=== PATIENT | female | born 1980 | race Caucasian/White ===

== ENCOUNTER 2017-06-06 23:03 | Inpatient (IN) | payer OTHER ==
[~2017-06-06] VITALS: Ht 162.6 cm; Wt 71.4 kg
[2017-06-06 23:12] VITALS: BP 132/81; PULSE 82; RESP 16; TEMP 97.6; O2SAT 100
[2017-06-06 23:56] LABS: AUTOMATED NEUTROPHIL # 6.8 TH/MM3 (1.8-7.7); BASOPHIL # 0.1 TH/MM3 (0-0.2); BASOPHIL % 0.7 % (0.0-2.0); EOSINOPHIL % 0.2 % (0.0-4.0); HEMATOCRIT 34.9 % (35.0-46.0); HEMOGLOBIN 11.2 GM/DL (11.6-15.3); LYMPH % 19.7 % (9.0-44.0); LYMPHOCYTE # 1.8 TH/MM3 (1.0-4.8); MEAN CELL VOLUME 70.1 FL (80.0-100.0); MEAN CORPUSCULAR HEMOGLOBIN 22.5 PG (27.0-34.0); MEAN CORPUSCULAR HGB CONC 32.2 % (32.0-36.0); MONO % 3.6 % (0.0-8.0); MONOCYTE # 0.3 TH/MM3 (0-0.9); NEUT % 75.8 % (16.0-70.0); PLATELET COUNT 370 TH/MM3 (150-450); RED BLOOD COUNT 4.98 MIL/MM3 (4.00-5.30); RED CELL DISTRIBUTION WIDTH 18.2 % (11.6-17.2); WHITE BLOOD COUNT 8.9 TH/MM3 (4.0-11.0)
[2017-06-07 00:18] LABS: ALBUMIN 3.8 GM/DL (3.4-5.0); ALT (GPT) 12 U/L (10-53); AST (GOT) 20 U/L (15-37); BICARBONATE 27.7 MEQ/L (21.0-32.0); BLOOD UREA NITROGEN 13 MG/DL (7-18); CALCIUM 9.2 MG/DL (8.5-10.1); CHLORIDE 107 MEQ/L (98-107); CREATININE 1.42 MG/DL (0.50-1.00); GLOMERULAR FILTRATION RATE 42 ML/MIN (>89); GLUCOSE,RANDOM 110 MG/DL (74-106); SODIUM (NA) 142 MEQ/L (136-145)
[2017-06-07 00:20] LABS: ALKALINE PHOSPHATASE 133 U/L (45-117); TOTAL BILIRUBIN ADULT 0.3 MG/DL (0.2-1.0); TOTAL PROTEIN 8.3 GM/DL (6.4-8.2)
--- NOTE | 2017-06-07 00:48 | PD ---
HPI Chief Complaint: Psychiatric Symptoms Time Seen by Provider: 00:27 Travel History International Travel<30 days: No Contact w/Intl Traveler<30days: No Traveled to known affect area: No History of Present Illness HPI 37-year-old white female presents emergency department under a [place] act by PD. Patient allegedly had left a suicide note and had taken 3 sleep aids for being brought in. The patient states that she is not sure exactly what was in the sleep aid. They were equate brand. Patient denies any other ingestions. She does drink alcohol on occasion. She denies any drugs. She does smoke cigarettes on occasion. Denies . She does report suffering from depression. She is not taking any antidepressants at this time. She is in the process of getting from her . She states that he is probably amorous and he has had his girlfriend living with them since the fall. She states that she is tired of her having another lover. Patient denies true suicidal ideation. No homicidal ideation. No medical complaints PFSH Past Medical History Narrative Medical Depression Tetanus Vaccination: < 5 Years ?: Not LMP: 05/30/2017 Past Surgical History Surgical History: No Previous Surgery Social History Alcohol Use: Yes Tobacco Use: Yes Substance Use: No Allergies-Medications (Allergen,Severity, Reaction): Coded Allergies: bupropion (Verified Allergy, Unknown, HIVES, 06/06/17) Review of Systems General / Constitutional: No: Fever Eyes: No: Visual changes HENT: No: Headaches Cardiovascular: No: Chest Pain or Discomfort Respiratory: No: Shortness of Breath Gastrointestinal: No: Abdominal Pain Genitourinary: No: Dysuria Musculoskeletal: No: Pain Skin: No Rash Neurologic: No: Weakness Psychiatric: Positive: Depression, Suicidal Ideations, Mood Disorder, No: Anxiety, Disorder of Thought, Substance Abuse, Homicidal Ideation Endocrine: No: Polydipsia Hematologic/Lymphatic: No: Easy Bruising Physical Exam Narrative GENERAL: Well-nourished, well-developed patient. She does not appear to be somnolent. SKIN: Warm and dry. Patient has 2 Hickey's on her neck. HEAD: Normocephalic and atraumatic. EYES: No scleral icterus. No injection or drainage. ENT: No nasal drainage noted. Mucous membranes pink. Airway patent. NECK: Supple, trachea midline. Moves head freely without obvious discomfort. CARDIOVASCULAR: Regular rate and rhythm without murmurs, gallops, or rubs. RESPIRATORY: Breath sounds equal bilaterally. No accessory muscle use. GASTROINTESTINAL: Abdomen soft, non-tender, nondistended. EXTREMITIES: No cyanosis or edema. BACK: Nontender without obvious deformity. No CVA tenderness. NEURO: Patient is alert and oriented. no sensorimotor deficits. Nonfocal. Normal speech. PSYCH: No delusions. No auditory or visual hallucinations. Data Data Last Documented VS Vital Signs Date Time Temp Pulse Resp B/P (MAP) Pulse Ox O2 Delivery O2 Flow Rate FiO2 06/07/17 02:26 104 20 116/72 (87) 99 Room Air 06/06/17 23:12 97.6 Orders Orders Complete Blood Count With Diff (06/06/17 23:35) Comprehensive Metabolic Panel (06/06/17 23:35) Ed Urine Pregnancytest Poc (06/06/17 23:35) Psych Screen (06/06/17 23:35) Drug Screen, Random Urine (06/06/17 23:35) Alcohol (Ethanol) (06/07/17 00:28) Salicylates (Aspirin) (06/07/17 00:29) Tylenol (Acetaminophen) (06/07/17 00:29) Labs Laboratory Tests Test 06/06/17 00:00 06/06/17 23:35 06/06/17 23:40 Salicylates Level LESS THAN 1.7 MG/DL Acetaminophen Level LESS THAN 2.0 MCG/ML Ethyl Alcohol Level LESS THAN 3 MG/DL White Blood Count 8.9 TH/MM3 Red Blood Count 4.98 MIL/MM3 Hemoglobin 11.2 GM/DL Hematocrit 34.9 % Mean Corpuscular Volume 70.1 FL Mean Corpuscular Hemoglobin 22.5 PG Mean Corpuscular Hemoglobin Concent 32.2 % Red Cell Distribution Width 18.2 % Platelet Count 370 TH/MM3 Mean Platelet Volume 8.0 FL Neutrophils (%) (Auto) 75.8 % Lymphocytes (%) (Auto) 19.7 % Monocytes (%) (Auto) 3.6 % Eosinophils (%) (Auto) 0.2 % Basophils (%) (Auto) 0.7 % Neutrophils # (Auto) 6.8 TH/MM3 Lymphocytes # (Auto) 1.8 TH/MM3 Monocytes # (Auto) 0.3 TH/MM3 Eosinophils # (Auto) 0.0 TH/MM3 Basophils # (Auto) 0.1 TH/MM3 CBC Comment DIFF FINAL Differential Comment Blood Urea Nitrogen 13 MG/DL Creatinine 1.42 MG/DL Random Glucose 110 MG/DL Total Protein 8.3 GM/DL Albumin 3.8 GM/DL Calcium Level 9.2 MG/DL Alkaline Phosphatase 133 U/L Aspartate Amino Transf (AST/SGOT) 20 U/L Alanine Aminotransferase (ALT/SGPT) 12 U/L Total Bilirubin 0.3 MG/DL Sodium Level 142 MEQ/L Potassium Level 3.9 MEQ/L Chloride Level 107 MEQ/L Carbon Dioxide Level 27.7 MEQ/L Anion Gap 7 MEQ/L Estimat Glomerular Filtration Rate 42 ML/MIN Urine Opiates Screen NEG Urine Barbiturates Screen NEG Urine Amphetamines Screen NEG Urine Benzodiazepines Screen NEG Urine Cocaine Screen NEG Urine Cannabinoids Screen NEG MDM Medical Decision Making Medical Screen Exam Complete: Yes Emergency Medical Condition: Yes Medical Record Reviewed: Yes Interpretation(s) Laboratory Tests Test 06/06/17 00:00 06/06/17 23:35 06/06/17 23:40 Salicylates Level LESS THAN 1.7 MG/DL Acetaminophen Level LESS THAN 2.0 MCG/ML Ethyl Alcohol Level LESS THAN 3 MG/DL White Blood Count 8.9 TH/MM3 Red Blood Count 4.98 MIL/MM3 Hemoglobin 11.2 GM/DL Hematocrit 34.9 % Mean Corpuscular Volume 70.1 FL Mean Corpuscular Hemoglobin 22.5 PG Mean Corpuscular Hemoglobin Concent 32.2 % Red Cell Distribution Width 18.2 % Platelet Count 370 TH/MM3 Mean Platelet Volume 8.0 FL Neutrophils (%) (Auto) 75.8 % Lymphocytes (%) (Auto) 19.7 % Monocytes (%) (Auto) 3.6 % Eosinophils (%) (Auto) 0.2 % Basophils (%) (Auto) 0.7 % Neutrophils # (Auto) 6.8 TH/MM3 Lymphocytes # (Auto) 1.8 TH/MM3 Monocytes # (Auto) 0.3 TH/MM3 Eosinophils # (Auto) 0.0 TH/MM3 Basophils # (Auto) 0.1 TH/MM3 CBC Comment DIFF FINAL Differential Comment Blood Urea Nitrogen 13 MG/DL Creatinine 1.42 MG/DL Random Glucose 110 MG/DL Total Protein 8.3 GM/DL Albumin 3.8 GM/DL Calcium Level 9.2 MG/DL Alkaline Phosphatase 133 U/L Aspartate Amino Transf (AST/SGOT) 20 U/L Alanine Aminotransferase (ALT/SGPT) 12 U/L Total Bilirubin 0.3 MG/DL Sodium Level 142 MEQ/L Potassium Level 3.9 MEQ/L Chloride Level 107 MEQ/L Carbon Dioxide Level 27.7 MEQ/L Anion Gap 7 MEQ/L Estimat Glomerular Filtration Rate 42 ML/MIN Urine Opiates Screen NEG Urine Barbiturates Screen NEG Urine Amphetamines Screen NEG Urine Benzodiazepines Screen NEG Urine Cocaine Screen NEG Urine Cannabinoids Screen NEG Differential Diagnosis MDM: High Differential diagnoses: Schizophrenia, schizoaffective disorder, bipolar, anxiety, depression, adjustment reaction, mood disorder NOS, ODD, depressive disorder NOS, infection,electrolyte abnormality, malingering. Narrative Course Mental health screening discussed with the patient. Psychiatric screen ordered. The patient has been medically cleared. This is nontoxic overdose, medical clearance for psychiatric admission Diagnosis Primary Impression: Nontoxic overdose Additional Impression: Medical clearance for psychiatric admission Condition: Stable Taras Zaidi Jun 07, 2017 00:47
[2017-06-07 02:26] VITALS: BP 116/72; PULSE 104; RESP 20; O2SAT 99
[2017-06-07 06:09] VITALS: BP 124/82; PULSE 92; RESP 20; O2SAT 99
[2017-06-07] MEDS ORDERED: LORazepam 0.5 MG TAB PO PRN (09:00)
[2017-06-07] MEDS ORDERED: LORazepam 2 MG/ML VIAL IM PRN ×2 (09:00)
[2017-06-07] MEDS ORDERED: ALUMINUM/MAGNESIUM/SIMETH 30 ML CUP PO PRN (09:00)
[2017-06-07] MEDS ORDERED: MAGNESIUM HYDROXIDE SUSP 30 ML CUP PO PRN (09:00)
[2017-06-07] MEDS ORDERED: LORazepam 1 MG TAB PO PRN (09:00)
[2017-06-07] MEDS ORDERED: ACETAMINOPHEN 325 MG TAB PO PRN (09:00)
[2017-06-07] MEDS: NICOTINE 21 MG/24 HR PATCH T-DERMAL SCH (09:00)
--- NOTE | 2017-06-07 12:14 | HHI.HP ---
Provisional Diagnosis Admission Date Jun 07, 2017 at 08:59 Conrad I. Adjustment disorder with depressed mood vs major depressive disorder, recurrent , severe, without psychosis, anxiety Conrad II. Unspecified personality disorder Conrad III. No significant medical history Certification of Person's Competence To Provide Express and Informed Consent I have personally examined Chel Crystal , a person being served at [facility] on, Jun 07, 2017 11:59. Express and informed consent means consent voluntarily given in writing, by a competent person, after sufficient explanation and disclosure of the subject matter involved to enable the person to make a knowing and willful decision without any element of force, fraud, deceit, duress, or other form of constraint or coercion. This person is 18 years of age or older, is not now known to be incompetent to consent to treatment with a guardian advocate, and does not have a health care surrogate or proxy currently making medical treatment decisions. I have found this person to be one of the following: [] Competent to provide express and informed consent, as defined above, for voluntary admission to this facility and is competent to provide express and informed consent for treatment. He/she has the consistent capacity to make well reasoned, willful, and knowing decisions concerning his or her medical or mental health treatment. The person fully and consistently understands the purpose of the admission for examination/placement and is fully capable of personally exercising all rights assured [place] [] Incompetent to provide express and informed consent to voluntary admission, and this is incompetent to provide express and informed consent to treatment. The person must be transferred to involuntary status and a petition for a guardian advocate filed with the Circuit Court. [x] Refusing to provide express and informed consent to voluntary admission but is competent to provide express and informed consent for treatment. The person must be discharged or transferred to involuntary status. Form shall be completed within 24 hours of a person's arrival at the receiving facility and filed in the clinical record of each person: 1. Admitted on a voluntary basis 2. Permitted to provide express and informed consent to his/her own treatment 3. Allowed to transfer from involuntary to voluntary status 4. Prior to permitting a person to consent to his or her own treatment after having been previously found incompetent to consent to treatment. 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 Patient allegedly had left a suicide note and had taken 3 sleep aids for being brought in to [facility]. The patient states that she is not sure exactly what was in the sleep aid "but I just wanted to , I was very depressed". The patient reports that she has been in a very frustrating situation for the last year. She states that her marriage is hail and she is just tired. Patient explains that she has been engaged in "very wear relationship with my and his girlfriend who is 19 years old". The patient reports that the recent she tried to commit suicide is because she has became aware "but he clearly prefers her". Patient reports than when she overdosed and wrote the letter she was committed to . The patient reports that she continues to be very depressed, with increased sense of worthlessness, hopelessness, helplessness increased sensitivity to frustration, rejection and abandonment and continued suicidal ideation with plan of overdosing. She denies homicidal ideation, she denies visual and auditory hallucinations. The patient has a decreased rate, tone and volume in her speech, she seems to be very flat and objectively sad, which is mostly logical, coherent and relevant. At times she seems to be internally preoccupied, but no prominent paranoia, no loosening of associations, no ideas of reference are present. The patient reports that she drinks alcohol occasionally, denies the use of illegal drugs. Review of Systems Constitutional: DENIES: Diaphoretic episodes, Fatigue, Fever, Weight gain, Weight loss, Chills, Dizziness, Change in appetite, Night Sweats Endocrine: DENIES: Abnorml menstrual pattern, Heat/cold intolerance, Polydipsia , Polyuria, Polyphagia Eyes: DENIES: Blurred vision, Diplopia, Eye inflammation, Eye pain, Vision loss , Photosensitivity, Double Vision Ears, nose, mouth, throat: DENIES: Tinnitus, Hearing loss, Vertigo, Nasal discharge, Oral lesions, Throat pain, Hoarseness, Ear Pain, Running Nose, Epistaxis, Sinus Pain, Toothache, Odynophagia Respiratory: DENIES: Apneas, Cough, Snoring, Wheezing, Hemoptysis, Sputum production, Shortness of breath Cardiovascular: DENIES: Chest pain, Palpitations, Syncope, Dyspnea on Exertion , PND, Lower Extremity Edema, Orthopnea, Claudication Gastrointestinal: DENIES: Abdominal pain, Black stools, Bloody stools, Constipation, Diarrhea, Nausea, Vomiting, Difficulty Swallowing, Anorexia Genitourinary: DENIES: Abnormal vaginal bleeding, Dysmenorrhea, Dyspareunia, Sexual dysfunction, Urinary frequency, Urinary incontinence, Urgency, Hematuria , Dysuria, Nocturia, Vaginal discharge Musculoskeletal: DENIES: Joint pain, Muscle aches, Stiffness, Joint Swelling, Back pain, Neck pain Integumentary: DENIES: Abnormal pigmentation, Pruritus, Rash, Nail changes, Breast masses, Breast skin changes, Nipple discharge Hematologic/lymphatic: DENIES: Bruising, Lymphadenopathy Immunologic/allergic: DENIES: Eczema, Urticaria Neurologic: DENIES: Abnormal gait, Headache, Localized weakness, Paresthesias, Seizures, Speech Problems, Tremor, Poor Balance Psychiatric: COMPLAINS OF: Anxiety, Depression, Suicidal Ideation Past Psych History Violence risk - self (6 mos) Increased Substance Abuse History Drugs/Alcohol past 12 months Patient reports occasional use of alcohol Past Family Social History Coded Allergies: bupropion (Verified Allergy, Unknown, HIVES, 06/06/17) Current Medications Medications (Trade) Dose Ordered Sig/Yasmany Route Start Time Stop Time Status Last Admin (PROzac) 20 mg DAILY PO 06/07/17 09:00 (Ativan) 1 mg Q6H PRN PO 06/07/17 09:00 (Ativan Inj) 1 mg Q6H PRN IM 06/07/17 09:00 (Tylenol) 650 mg Q4H PRN PO 06/07/17 09:00 (Milk Of Magnesia Liq) 30 ml DAILY PRN PO 06/07/17 09:00 (Mag-Al Plus Susp Liq) 30 ml Q6H PRN PO 06/07/17 09:00 (Habitrol 21 Mg Patch.24 Hr) 1 patch DAILY T-DERMAL 06/07/17 09:00 Miscellaneous Information 1 HS T-DERMAL 06/07/17 21:00 Family Psych History She has a sister with bipolar disorder, another sister with schizophrenia Social History Patient was born and raised in [place], she lives in [facility] with her , 's girlfriend and her 8 years old son, 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 2) Family support, she is in psychiatric outpatient treatment Physical Exam No tremors, no EPS, no withdrawal, no stiffness present Vital Signs Vital Signs Date Time Temp Pulse Resp B/P (MAP) Pulse Ox O2 Delivery O2 Flow Rate FiO2 06/07/17 06:09 92 20 124/82 (96) 99 Room Air 06/06/17 23:12 97.6 Lab Results Test 06/06/17 23:35 06/06/17 23:40 White Blood Count 8.9 TH/MM3 Red Blood Count 4.98 MIL/MM3 Hemoglobin 11.2 GM/DL Hematocrit 34.9 % Mean Corpuscular Volume 70.1 FL Mean Corpuscular Hemoglobin 22.5 PG Mean Corpuscular Hemoglobin Concent 32.2 % Red Cell Distribution Width 18.2 % Platelet Count 370 TH/MM3 Mean Platelet Volume 8.0 FL Neutrophils (%) (Auto) 75.8 % Lymphocytes (%) (Auto) 19.7 % Monocytes (%) (Auto) 3.6 % Eosinophils (%) (Auto) 0.2 % Basophils (%) (Auto) 0.7 % Neutrophils # (Auto) 6.8 TH/MM3 Lymphocytes # (Auto) 1.8 TH/MM3 Monocytes # (Auto) 0.3 TH/MM3 Eosinophils # (Auto) 0.0 TH/MM3 Basophils # (Auto) 0.1 TH/MM3 CBC Comment DIFF FINAL Differential Comment Blood Urea Nitrogen 13 MG/DL Creatinine 1.42 MG/DL Random Glucose 110 MG/DL Total Protein 8.3 GM/DL Albumin 3.8 GM/DL Calcium Level 9.2 MG/DL Alkaline Phosphatase 133 U/L Aspartate Amino Transf (AST/SGOT) 20 U/L Alanine Aminotransferase (ALT/SGPT) 12 U/L Total Bilirubin 0.3 MG/DL Sodium Level 142 MEQ/L Potassium Level 3.9 MEQ/L Chloride Level 107 MEQ/L Carbon Dioxide Level 27.7 MEQ/L Anion Gap 7 MEQ/L Estimat Glomerular Filtration Rate 42 ML/MIN Urine Opiates Screen NEG Urine Barbiturates Screen NEG Urine Amphetamines Screen NEG Urine Benzodiazepines Screen NEG Urine Cocaine Screen NEG Urine Cannabinoids Screen NEG Mental Status Examination Appearance: Appropriate, Other (Green tinted hair) Consciousness: Alert Orientation: x4 Motor Activity: Normal gait Speech: Unremarkable Language: Adequate Fund of Knowledge: Adequate Attention and Concentration: Adequate Memory: Unremarkable Mood: Sad Affect: Sad, Flat Thought Process & Associations: Intact Thought Content: Appropriate Hallucination Type: None Delusion Type: None, Bizarre Suicidal Ideation: Yes Suicidal Plan: Yes Suicidal Intention: No Homicidal Ideation: No Homicidal Plan: No Homicidal Intention: No Insight: Poor Judgment: Poor Assessment & Plan Problem List: (1) Adjustment disorder with depressed mood ICD Codes: F43.21 - Adjustment disorder with depressed mood Assessment & Plan: On psychiatric evaluation the patient presents symptoms of depression in the context of marital conflicts. Patient reports ongoing symptoms of hopelessness, helplessness, worthlessness, increased sensitivity to rejection, frustration and abandonment, suicidal thoughts that has finally led to a suicidal attempt by overdosing. The patient reported that she is very sad , she continues to have suicidal ideation, no specific plan at the moment. The patient has definitely an increased risk of danger to herself and needs psychiatric admission for stabilization. Collateral information from her could not be obtained this morning. Adjustment versus depression exacerbated by up visible cluster B traits could be related pathologically with current presentation. I will increase the Prozac to 20 mg. We will consult psychiatry for second opinion. Patient will be transferred to 2700 unit. Assessment & Plan Estimated LOS: Jamshid Reyes MD Jun 07, 2017 12:14
[2017-06-07 12:55] VITALS: BP 121/75; PULSE 110; RESP 17; TEMP 97.8; O2SAT 97
[2017-06-07 18:08] VITALS: BP 124/67; PULSE 99; RESP 17; TEMP 97.8; O2SAT 97
[2017-06-07] MEDS: REMOVE OLD NICODERM (NICOTINE) PATCH T-DERMAL SCH (20:56)
[2017-06-08 05:46] VITALS: BP 113/64; PULSE 84; RESP 16; TEMP 97.8; O2SAT 100
[2017-06-08 07:25] LABS: BICARBONATE 27.9 MEQ/L (21.0-32.0); BLOOD UREA NITROGEN 15 MG/DL (7-18); CALCIUM 8.6 MG/DL (8.5-10.1); CHLORIDE 109 MEQ/L (98-107); CHOLESTEROL 143 MG/DL (120-200); CREATININE 1.58 MG/DL (0.50-1.00); GLOMERULAR FILTRATION RATE 37 ML/MIN (>89); GLUCOSE,RANDOM 77 MG/DL (74-106); SODIUM (NA) 143 MEQ/L (136-145)
[2017-06-08 07:28] LABS: CHOLESTEROL/ HDL RATIO 2.49 RATIO; HDL CHOLESTEROL 57.3 MG/DL (40.0-60.0); LDL CHOLESTEROL 61 MG/DL (0-99); TRIGLYCERIDES 123 MG/DL (42-150)
[2017-06-08] MEDS: FLUoxetine HCL 20 MG CAP PO SCH ×2 (09:00→09:08)
[2017-06-08] MEDS: NICOTINE 21 MG/24 HR PATCH T-DERMAL SCH (09:00)
[2017-06-08] MEDS: REMOVE OLD NICODERM (NICOTINE) PATCH T-DERMAL SCH (09:13)
--- NOTE | 2017-06-08 12:47 | HHI.PYPN ---
Subjective Remarks There is a request for second opinion. Admission note was reviewed and I agree with its history. Patient remains depressed and feels hopeless. She does deny suicidal or homicidal ideation intent or plan. We discussed medication options and she is willing to start Seroquel. Patient also says she was on 40 mg of Prozac Mental Status Examination Appearance: Appropriate, Other (Green tinted hair) Consciousness: Alert Orientation: x4 Motor Activity: Normal gait Speech: Unremarkable Language: Adequate Fund of Knowledge: Adequate Attention and Concentration: Adequate Memory: Unremarkable Mood: Sad Affect: Sad, Flat Thought Process & Associations: Intact Thought Content: Appropriate Hallucination Type: None Delusion Type: None, Bizarre Suicidal Ideation: No Suicidal Plan: No Suicidal Intention: No Homicidal Ideation: No Homicidal Plan: No Homicidal Intention: No Insight: Poor Judgment: Poor Results Labs Test 06/08/17 06:23 Blood Urea Nitrogen 15 MG/DL Creatinine 1.58 MG/DL Random Glucose 77 MG/DL Calcium Level 8.6 MG/DL Sodium Level 143 MEQ/L Potassium Level 4.3 MEQ/L Chloride Level 109 MEQ/L Carbon Dioxide Level 27.9 MEQ/L Anion Gap 6 MEQ/L Estimat Glomerular Filtration Rate 37 ML/MIN Triglycerides Level 123 MG/DL Cholesterol Level 143 MG/DL LDL Cholesterol 61 MG/DL HDL Cholesterol 57.3 MG/DL Cholesterol/HDL Ratio 2.49 RATIO Vitals/IOs Vital Signs Date Time Temp Pulse Resp B/P (MAP) Pulse Ox O2 Delivery O2 Flow Rate FiO2 06/08/17 05:46 97.8 84 16 113/64 (80) 100 06/07/17 06:09 Room Air Assessment & Plan Problem List: (1) Adjustment disorder with depressed mood ICD Codes: F43.21 - Adjustment disorder with depressed mood Assessment & Plan I agree with the first opinion to continue petition. Criteria include suicide attempt Justification for Cont. Inpt. Patient would decompensate in a less restrictive setting Killian Hooker DO Jun 08, 2017 12:47
--- NOTE | 2017-06-08 15:27 | PD.CONS ---
HPI Service [facility] Consult Requested By Dr Hooker Reason for Consult Elevated creatinine Primary Care Physician No Primary Care Physician Diagnoses: History of Present Illness This is a 37-year-old female with past medical history of depression and anxiety and no previous medical issue who was admitted to psychiatric unit after suicidal attempt. Upon evaluation of the patient in the psychiatric unit he was found that the patient had an elevated creatinine. The patient denies any previous issues with her kidneys, however states that previous to coming here she was not eating or drinking well due to feeling depressed. She complains of dry mouth, states she is urinating, denies flank pain, fevers, chills, diarrhea, nausea vomiting. Denies abdominal pain. Review of Systems As per HPI, other systems reviewed by me and negative. Past Family Social History Allergies: Coded Allergies: bupropion (Verified Allergy, Unknown, HIVES, 06/06/17) Past Medical History Anxiety and depression. Past Surgical History Cervical discectomy Reported Medications Prozac 10 mg p.o. daily. Active Ordered Medications Current Medications Medications (Trade) Dose Ordered Sig/Yasmany Route Start Time Stop Time Status Last Admin (Ativan) 1 mg Q6H PRN PO 06/07/17 09:00 (Ativan Inj) 1 mg Q6H PRN IM 06/07/17 09:00 (Tylenol) 650 mg Q4H PRN PO 06/07/17 09:00 (Milk Of Magnesia Liq) 30 ml DAILY PRN PO 06/07/17 09:00 (Mag-Al Plus Susp Liq) 30 ml Q6H PRN PO 06/07/17 09:00 (Habitrol 21 Mg Patch.24 Hr) 1 patch DAILY T-DERMAL 06/07/17 09:00 Miscellaneous Information 1 HS T-DERMAL 06/07/17 21:00 (PROzac) 40 mg DAILY PO 06/09/17 09:00 (SEROquel) 50 mg HS PO 06/08/17 21:00 Family History Denies family history of heart disease diabetes or cancer. Social History Patient denies smoking, drinks occasional alcohol. Denies illicit drug use. Physical Exam Vital Signs Vital Signs Date Time Temp Pulse Resp B/P (MAP) Pulse Ox O2 Delivery O2 Flow Rate FiO2 06/08/17 05:46 97.8 84 16 113/64 (80) 100 06/07/17 18:08 97.8 99 17 124/67 (34) 14 Physical Exam GENERAL: This is a well-nourished, well-developed patient, in no apparent distress. SKIN: No rashes, ecchymoses or lesions. Cool and dry. HEAD: Atraumatic. Normocephalic. No temporal or scalp tenderness. EYES: Pupils equal round and reactive. Extraocular motions intact. No scleral icterus. No injection or drainage. ENT: Nose without bleeding, purulent drainage or septal hematoma. Throat without erythema, tonsillar hypertrophy or exudate. Uvula midline. Airway patent. NECK: Trachea midline. No JVD or lymphadenopathy. Supple, nontender, no meningeal signs. CARDIOVASCULAR: Regular rate and rhythm without murmurs, gallops, or rubs. RESPIRATORY: Clear to auscultation. Breath sounds equal bilaterally. No wheezes , rales, or rhonchi. GASTROINTESTINAL: Abdomen soft, non-tender, nondistended. No hepato-splenomegaly , or palpable masses. No guarding. MUSCULOSKELETAL: Extremities without clubbing, cyanosis, or edema. No joint tenderness, effusion, or edema noted. No calf tenderness. Negative Homans sign bilaterally. NEUROLOGICAL: Awake and alert. Cranial nerves II through XII intact. Motor and sensory grossly within normal limits. Five out of 5 muscle strength in all muscle groups. Normal speech. Laboratory Laboratory Tests Test 06/08/17 06:23 Blood Urea Nitrogen 15 Creatinine 1.58 Random Glucose 77 Calcium Level 8.6 Sodium Level 143 Potassium Level 4.3 Chloride Level 109 Carbon Dioxide Level 27.9 Anion Gap 6 Estimat Glomerular Filtration Rate 37 Triglycerides Level 123 Cholesterol Level 143 LDL Cholesterol 61 HDL Cholesterol 57.3 Cholesterol/HDL Ratio 2.49 Result Diagram: 06/06/17 2335 06/08/17 0623 Assessment and Plan Problem List: (1) Adjustment disorder with depressed mood ICD Code: F43.21 - Adjustment disorder with depressed mood Plan: Management as per psychiatry. The patient currently on Prozac, Seroquel and Ativan as needed. (2) TRESA (acute kidney injury) ICD Code: N17.9 - Acute kidney failure, unspecified Plan: Patient presented with an elevated creatinine of 1.42 which is going up to 1.58 today. Possibly secondary to prerenal azotemia. Instructed patient to drink plenty of fluids Monitor BUN and creatinine, strict I's and O's, avoid nephrotoxins. We will check kidney ultrasound. Check urine sodium, urine creatinine and consult nephrology. Assessment and Plan DVT prophylaxis: Ambulation. Code Status Full code Discussed Condition With RN, patient. Ranjith Vogel MD Jun 08, 2017 15:27
[2017-06-08 19:26] VITALS: BP 120/64; PULSE 80; RESP 16; TEMP 98; O2SAT 100
[2017-06-08] MEDS ORDERED: QUEtiapine FUMARATE 25 MG TAB PO SCH (21:00)
--- NOTE | 2017-06-08 22:25 | RADRPT ---
EXAM DATE/TIME: 06/08/2017 21:41 [place] COMPARISON: No previous studies available for comparison. INDICATIONS : Increased BUN/Creatnine. MEDICAL HISTORY : Depression. Anxiety. Tobacco use. SURGICAL HISTORY : ENCOUNTER: Initial ACUITY: 1 day PAIN SCORE: 0/10 LOCATION: Bilateral flank MEASUREMENTS: RIGHT KIDNEY: 9.2 x 4.7 x 3.4 cm cm LEFT KIDNEY: 9.8 x 4.7 x 4.7 cm cm FINDINGS: RIGHT KIDNEY: Renal cortex is normal in thickness and echotexture. No hydronephrosis, stone, or mass. LEFT KIDNEY: Renal cortex is normal in thickness and echotexture. No hydronephrosis, stone, or mass. BLADDER: Within normal limits given the degree of distension. CONCLUSION: Ultrasound appearance of the kidneys and urinary bladder within normal limits. Mick Dahl MD on June 08, 2017 at 22:22 Board Certified Radiologist. This report was verified electronically.
[2017-06-08 22:28] LABS: BACTERIA, URINE OCC /hpf; BILIRUBIN, URINE NEG (NEG); BLOOD, URINE MOD (NEG); CREATININE, RANDOM URINE 229.7 MG/DL; GLUCOSE,URINE NEG (NEG); KETONE, URINE NEG (NEG); MUCUS URINE FEW /lpf (OCC); NITRITE,URINE NEG (NEG); PH, URINE 6.5 (5.0-8.5); SQUAMOUS EPITHELIAL CELL URINE 28 /hpf (0-5); URINE COLOR YELLOW (YELLW/STRAW); URINE LEUKOCYTE ESTERASE MOD (NEG)
[2017-06-09 05:16] VITALS: BP 104/67; PULSE 93; RESP 16; TEMP 98; O2SAT 99
[2017-06-09] MEDS: FLUoxetine HCL 20 MG CAP PO SCH (08:55)
[2017-06-09] MEDS ORDERED: CEFUROXIME AXETIL 250 MG TAB PO SCH (09:00)
[2017-06-09] MEDS: NICOTINE 21 MG/24 HR PATCH T-DERMAL SCH (09:00)
--- NOTE | 2017-06-09 09:26 | PD.CONS ---
HPI Service Nephrology Consult Requested By Reason for Consult TRESA Primary Care Physician No Primary Care Physician History of Present Illness Ms. Crystal has been admitted to psychiatry [facility] because of suicidal ideation. Apparently took [employer] brand sleeping aid. Her creatinine was 1.42 on and it increased to 1.58 on the . No previous labs are available. Apparently her oral intake was poor. UA revealed some protein, red cells and WBCs, however she reports that she is in the midst of menstrual periods. Review of Systems Constitutional: DENIES: Fatigue Eyes: DENIES: Eye inflammation Ears, nose, mouth, throat: DENIES: Nasal discharge Cardiovascular: DENIES: Chest pain Gastrointestinal: DENIES: Abdominal pain Musculoskeletal: DENIES: Joint pain, Muscle aches Integumentary: DENIES: Abnormal pigmentation Neurologic: DENIES: Abnormal gait, Headache Past Family Social History Allergies: Coded Allergies: bupropion (Verified Allergy, Unknown, HIVES, 06/06/17) Past Medical History History of depression Reported Medications Prozac. Active Ordered Medications Current Medications Medications (Trade) Dose Ordered Sig/Yasmany Route Start Time Stop Time Status Last Admin (Ativan) 1 mg Q6H PRN PO 06/07/17 09:00 (Ativan Inj) 1 mg Q6H PRN IM 06/07/17 09:00 (Tylenol) 650 mg Q4H PRN PO 06/07/17 09:00 (Milk Of Magnesia Liq) 30 ml DAILY PRN PO 06/07/17 09:00 (Mag-Al Plus Susp Liq) 30 ml Q6H PRN PO 06/07/17 09:00 (Habitrol 21 Mg Patch.24 Hr) 1 patch DAILY T-DERMAL 06/07/17 09:00 Miscellaneous Information 1 HS T-DERMAL 06/07/17 21:00 (PROzac) 40 mg DAILY PO 06/09/17 09:00 06/09/17 08:55 (SEROquel) 50 mg HS PO 06/08/17 21:00 06/08/17 20:31 (Ceftin) 250 mg Q12HR PO 06/09/17 09:00 Family History reviewed, non contributory Social History , lives in [facility]. 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 No Smoking. Social drinking of ETOH. No other drugs. Physical Exam Vital Signs Vital Signs Date Time Temp Pulse Resp B/P (MAP) Pulse Ox O2 Delivery O2 Flow Rate FiO2 06/09/17 05:16 98.0 93 16 104/67 (79) 99 06/08/17 19:26 98.0 80 16 120/64 (82) 100 Physical Exam GENERAL: awake, alert. SKIN: Warm and dry. HEAD: Normocephalic. EYES: No scleral icterus. No injection or drainage. NECK: Supple, trachea midline. No JVD or lymphadenopathy. CARDIOVASCULAR: Regular rate and rhythm without murmurs, gallops, or rubs. RESPIRATORY: Breath sounds equal bilaterally. No accessory muscle use. GASTROINTESTINAL: Abdomen soft, non-tender, nondistended. MUSCULOSKELETAL: No cyanosis, or edema. BACK: Nontender without obvious deformity. No CVA tenderness. Laboratory Laboratory Tests Test 06/08/17 21:30 06/09/17 07:23 Urine Color YELLOW Urine Turbidity HAZY Urine pH 6.5 Urine Specific [place] 1.028 Urine Protein 30 Urine Glucose (UA) NEG Urine Ketones NEG Urine Occult Blood MOD Urine Nitrite NEG Urine Bilirubin NEG Urine Urobilinogen LESS THAN 2.0 Urine Leukocyte Esterase MOD Urine RBC 9 Urine WBC 10 Urine Squamous Epithelial Cells 28 Urine Bacteria OCC Urine Mucus FEW Microscopic Urinalysis Comment CULTURE INDICATED Urine Random Creatinine 229.7 Urine Random Sodium 158 Date/Time Source Procedure Growth Status 06/08/17 21:30 Urine Clean Catch Urine Culture Pending Received Result Diagram: 06/06/17 2335 06/08/17 0623 Assessment and Plan Problem List: (1) TRESA (acute kidney injury) ICD Codes: N17.9 - Acute kidney failure, unspecified Plan: Labs today reveal improvement in renal function. Patient reports that she had not been drinking enough fluids for the past several days before admission. She was advised to drink plenty of fluids. She denies use of NSAIDs. Renal US did not reveal hydronephrosis. UA is abnormal due to menstrual periods. No additional workup is necessary. She can be discharged from renal standpoint. I will sign off at this time. Thanks for the consult. Channing Valera MD Jun 09, 2017 09:26
[2017-06-09 10:08] LABS: ALBUMIN 3.6 GM/DL (3.4-5.0); BICARBONATE 29.8 MEQ/L (21.0-32.0); CALCIUM 8.9 MG/DL (8.5-10.1); CREATININE 1.38 MG/DL (0.50-1.00); PHOSPHORUS 3.5 MG/DL (2.5-4.9)
[2017-06-09] MEDS: NORGESTIMATE PO SCH (11:22)
[2017-06-09] MEDS: ETHINYL ESTRADIOL PO SCH (11:22)
[2017-06-09 11:53] LABS: HEMOGLOBIN A1C 5.5 % (4.3-6.0)
--- NOTE | 2017-06-09 12:08 | HHI.PR ---
Subjective Remarks Follow up on patient with TRESA. Patient seen and examined. Patient denies any dysuria but reports hematuria. She denies any fever or chills. Otherwise, states she feels well. She is afebrile, VSS. Discussed with nursing staff, no acute issues noted. Objective Vitals Vital Signs Date Time Temp Pulse Resp B/P (MAP) Pulse Ox O2 Delivery O2 Flow Rate FiO2 06/09/17 05:16 98.0 93 16 104/67 (79) 99 06/08/17 19:26 98.0 80 16 120/64 (82) 100 I/O 06/08/17 06/08/17 06/08/17 06/09/17 06/09/17 06/09/17 07:00 15:00 23:00 07:00 15:00 23:00 Intake Total 240 ml Balance 240 ml Intake Oral 240 ml Result Diagram: 06/06/17 2335 06/09/17 0727 Imaging Last Impressions Renal Ultrasound 06/08/17 0000 Signed Impressions: Service Date/Time: Thursday, June 08, 2017 21:41 - CONCLUSION: Ultrasound appearance of the kidneys and urinary bladder within normal limits. Mick Dahl MD Objective Remarks GENERAL: This is a well-nourished, well-developed female patient, in no apparent distress. Awake and alert. Witnessed ambulating in the unit. SKIN: Cool and dry. HEAD: Atraumatic. Normocephalic. EYES: Pupils equal round and reactive. Extraocular motions intact. No scleral icterus. No injection or drainage. ENT: Nose without bleeding or purulent drainage. Airway patent. MMM. NECK: Trachea midline. CARDIOVASCULAR: Regular rate and rhythm without murmurs, gallops, or rubs. RESPIRATORY: Clear to auscultation. Breath sounds equal bilaterally. No wheezes , rales, or rhonchi. GASTROINTESTINAL: Abdomen soft, non-tender, nondistended. MUSCULOSKELETAL: Extremities without clubbing, cyanosis, or edema. NEUROLOGICAL: Awake and alert. Cranial nerves II through XII grossly intact. Able to move all extremities spontaneously. Nonfocal. Normal speech. PSYCHIATRIC: Pleasant and calm, cooperative. Appears to have normal judgement and insight. Procedures None Medications and IVs Current Medications Medications (Trade) Dose Ordered Sig/Yasmany Route Start Time Stop Time Status Last Admin (Ativan) 1 mg Q6H PRN PO 06/07/17 09:00 (Ativan Inj) 1 mg Q6H PRN IM 06/07/17 09:00 (Tylenol) 650 mg Q4H PRN PO 06/07/17 09:00 (Milk Of Magnesia Liq) 30 ml DAILY PRN PO 06/07/17 09:00 (Mag-Al Plus Susp Liq) 30 ml Q6H PRN PO 06/07/17 09:00 (Habitrol 21 Mg Patch.24 Hr) 1 patch DAILY T-DERMAL 06/07/17 09:00 Miscellaneous Information 1 HS T-DERMAL 06/07/17 21:00 (PROzac) 40 mg DAILY PO 06/09/17 09:00 06/09/17 08:55 (SEROquel) 50 mg HS PO 06/08/17 21:00 06/08/17 20:31 (Ceftin) 250 mg Q12HR PO 06/09/17 09:00 06/09/17 11:22 Patient Own Medication PT OWN MED: NORGESTIMATE AND ETHI... DAILY PO 06/09/17 11:30 06/09/17 11:22 A/P Problem List: (1) Adjustment disorder with depressed mood ICD Code: F43.21 - Adjustment disorder with depressed mood (2) TRESA (acute kidney injury) ICD Code: N17.9 - Acute kidney failure, unspecified Assessment and Plan 37yo female with depression and anxiety admitted after suicide attempt. Depression, symptomatic Anxiety Suicide attempt with intention OD of Benadryl -Management per psychiatry TRESA -improving, Cr dropped from 1.58 to 1.38 -Nephrology following, appreciate recommendations -FENa <1%, likely prerenal -renal US shows no hydronephrosis -avoid nephrotoxic agents -treat UTI -encourage fluid intake -continue to monitor renal indices UTI -started on Ceftin 250mg x 7 days -monitor final urine cx results DVT prophylaxis -patient is ambulatory Awilda Orellana Jun 09, 2017 12:08
--- NOTE | 2017-06-09 12:35 | HHI.PYPN ---
Subjective Remarks Patient was seen and case discussed with nursing. Patient is feeling better now that her social situation is improved with her . They had a meeting with a plan to make it work and attend counseling. Affect is brighter. He is tolerating her Seroquel well and we will continue the titration Mental Status Examination Appearance: Appropriate, Other (Green tinted hair) Consciousness: Alert Orientation: x4 Motor Activity: Normal gait Speech: Unremarkable Language: Adequate Fund of Knowledge: Adequate Attention and Concentration: Adequate Memory: Unremarkable Mood: Sad Affect: Sad, Flat Thought Process & Associations: Intact Thought Content: Appropriate Hallucination Type: None Delusion Type: None, Bizarre Suicidal Ideation: No Suicidal Plan: No Suicidal Intention: No Homicidal Ideation: No Homicidal Plan: No Homicidal Intention: No Insight: Poor Judgment: Poor Results Labs Test 06/08/17 21:30 06/09/17 07:23 06/09/17 07:27 Urine Color YELLOW Urine Turbidity HAZY Urine pH 6.5 Urine Specific [place] 1.028 Urine Protein 30 mg/dL Urine Glucose (UA) NEG mg/dL Urine Ketones NEG mg/dL Urine Occult Blood MOD Urine Nitrite NEG Urine Bilirubin NEG Urine Urobilinogen LESS THAN 2.0 MG/DL Urine Leukocyte Esterase MOD Urine RBC 9 /hpf Urine WBC 10 /hpf Urine Squamous Epithelial Cells 28 /hpf Urine Bacteria OCC /hpf Urine Mucus FEW /lpf Microscopic Urinalysis Comment CULTURE INDICATED Urine Random Creatinine 229.7 MG/DL Urine Random Sodium 158 MEQ/L Blood Urea Nitrogen 20 MG/DL Creatinine 1.38 MG/DL Random Glucose 82 MG/DL Albumin 3.6 GM/DL Calcium Level 8.9 MG/DL Phosphorus Level 3.5 MG/DL Sodium Level 140 MEQ/L Potassium Level 4.8 MEQ/L Chloride Level 107 MEQ/L Carbon Dioxide Level 29.8 MEQ/L Anion Gap 3 MEQ/L Estimat Glomerular Filtration Rate 44 ML/MIN Date/Time Source Procedure Growth Status 06/08/17 21:30 Urine Clean Catch Urine Culture - Preliminary NO GROWTH IN 24 HOURS. Resulted Vitals/IOs Vital Signs Date Time Temp Pulse Resp B/P (MAP) Pulse Ox O2 Delivery O2 Flow Rate FiO2 06/09/17 05:16 98.0 93 16 104/67 (79) 99 06/07/17 06:09 Room Air Intake and Output 06/09/17 06/09/17 06/10/17 08:00 16:00 00:00 Intake Total 240 ml Balance 240 ml Assessment & Plan Problem List: (1) Adjustment disorder with depressed mood ICD Codes: F43.21 - Adjustment disorder with depressed mood Assessment & Plan Increase Seroquel to 100 mg p.o. nightly Justification for Cont. Inpt. Patient would decompensate in a less restrictive setting Killian Hooker DO Jun 09, 2017 12:35
[2017-06-09 17:41] VITALS: BP 119/58; PULSE 86; RESP 18; TEMP 98; O2SAT 100
[2017-06-09] MEDS ORDERED: QUEtiapine FUMARATE 100 MG TAB PO SCH (21:00)
[2017-06-09] MEDS: REMOVE OLD NICODERM (NICOTINE) PATCH T-DERMAL SCH (21:00)
[2017-06-10 05:50] VITALS: BP 118/56; RESP 16; TEMP 97.6; O2SAT 98
[2017-06-10] MEDS: FLUoxetine HCL 20 MG CAP PO SCH (08:49)
[2017-06-10] MEDS: ETHINYL ESTRADIOL PO SCH (08:50)
[2017-06-10] MEDS: NORGESTIMATE PO SCH (08:50)
[2017-06-10] MEDS: NICOTINE 21 MG/24 HR PATCH T-DERMAL SCH (09:00)
--- NOTE | 2017-06-10 12:10 | HHI.PR ---
Subjective Remarks no complains when asked why she is here- admitted that she did something stupid- up and ambulating motivated with lifestyle changes voiding spontaneously- denies any flank pain or burning or dysuria Objective Vitals Vital Signs Date Time Temp Pulse Resp B/P (MAP) Pulse Ox O2 Delivery O2 Flow Rate FiO2 06/10/17 05:50 97.6 16 118/56 (76) 98 06/09/17 17:41 98.0 86 18 119/58 (78) 100 I/O 06/09/17 06/09/17 06/09/17 06/10/17 06/10/17 06/10/17 07:00 15:00 23:00 07:00 15:00 23:00 Intake Total 480 ml 240 ml Balance 480 ml 240 ml Intake Oral 480 ml 240 ml Result Diagram: 06/06/17 2335 06/09/17 0727 Imaging Last Impressions Renal Ultrasound 06/08/17 0000 Signed Impressions: Service Date/Time: Thursday, June 08, 2017 21:41 - CONCLUSION: Ultrasound appearance of the kidneys and urinary bladder within normal limits. Mick Dahl MD Objective Remarks awake and alert, no acute distress, cooperative and pleasant anicteric no nuchal rigidity lungs-clear regular rhythm abdomen soft extremities no edema gait steady Procedures None A/P Problem List: (1) Adjustment disorder with depressed mood ICD Code: F43.21 - Adjustment disorder with depressed mood (2) TRESA (acute kidney injury) ICD Code: N17.9 - Acute kidney failure, unspecified Assessment and Plan 37yo female with depression and anxiety admitted after suicide attempt. Depression, Anxiety Suicide attempt with intention OD of Benadryl -Management per psychiatry - patient now admits "it was a stupid thing for me to do, never again" TRESA - patient voiding well -improving, Cr dropped from 1.58 to 1.38 -Nephrology following, appreciate recommendations -FENa <1%, likely prerenal -renal US shows no hydronephrosis -avoid nephrotoxic agents -encourage fluid intake -continue to monitor renal indices Pyuria - culture no growth- , currently on cycles no need for antibiotics. Ceftin was DC DVT prophylaxis -patient is ambulatory patient states good family support Tiffanie Corona MD Jun 10, 2017 12:10
[2017-06-10] MEDS ORDERED: QUET1TAB8 PO (14:43)
[2017-06-10] MEDS ORDERED: PROZ40CA PO (14:43)
--- NOTE | 2017-06-10 14:45 | HHI.DS ---
Psychiatry Discharge Summary Inpatient Psychiatric care?: Yes Advance Directive: No Reason Not Provided: Due to Patient Condition Mental Health AdvanceDirective: No Health Care Proxy: No Admission Admission Date Jun 07, 2017 at 08:59 Admission Diagnosis: (1) Adjustment disorder with depressed mood ICD Code: F43.21 - Adjustment disorder with depressed mood Brief History The patient is a 37-year-old woman, domiciled with her , her 8 years old and the girlfriend of her in the [place], she is employed as a [employer] in [place], with psychiatric history of depression and anxiety, no previous psychiatric hospitalizations, she is in Prozac 10 mg prescribed by PCP , no previous suicide attempts, no self injury behavior, no significant medical history, who presents emergency department under a [place] act by PD. Patient allegedly had left a suicide note and had taken 3 sleep aids for being brought in to [facility]. The patient states that she is not sure exactly what was in the sleep aid "but I just wanted to , I was very depressed". The patient reports that she has been in a very frustrating situation for the last year. She states that her marriage is hail and she is just tired. Patient explains that she has been engaged in "very wear relationship with my and his girlfriend who is 19 years old". The patient reports that the recent she tried to commit suicide is because she has became aware "but he clearly prefers her". Patient reports than when she overdosed and wrote the letter she was committed to . The patient reports that she continues to be very depressed, with increased sense of worthlessness, hopelessness, helplessness increased sensitivity to frustration, rejection and abandonment and continued suicidal ideation with plan of overdosing. She denies homicidal ideation, she denies visual and auditory hallucinations. The patient has a decreased rate, tone and volume in her speech, she seems to be very flat and objectively sad, which is mostly logical, coherent and relevant. At times she seems to be internally preoccupied, but no prominent paranoia, no loosening of associations, no ideas of reference are present. The patient reports that she drinks alcohol occasionally, denies the use of illegal drugs. Tobacco Use In Past 30 Days: No Tobacco Past 30 Days Alcohol Use: Monthly or Less Hospital Course Patient's hospital course was uneventful, she showed compliance medications from date of admission. She said the weekend to process her feelings about the living situation. It appears that she will tolerated for now. She is gotten reassurances from her that they will both go to counseling to help resolve this. She also wishes to be home with her 8-year-old daughter. Patient denies suicidality and homicidality voices or visions. She does show some good processing and untrusting. At this time she no longer meets [place] act criteria for involuntary psychiatric hospitalization. Thus patient will be discharged today to herself with Rx 1 month follow-up [facility] medication management and perhaps counseling Results Blood Pressure 118 / 56 Vital Signs Date Time Temp Pulse Resp B/P (MAP) Pulse Ox O2 Delivery O2 Flow Rate FiO2 06/10/17 05:50 97.6 16 118/56 (76) 98 06/09/17 17:41 86 06/07/17 06:09 Room Air Laboratory Tests Test 06/08/17 06:23 06/08/17 21:30 06/09/17 07:23 06/09/17 07:27 Creatinine 1.58 MG/DL (0.50-1.00) 1.38 MG/DL (0.50-1.00) Chloride Level 109 MEQ/L (98-107) Estimat Glomerular Filtration Rate 37 ML/MIN (>89) 44 ML/MIN (>89) Urine Turbidity HAZY (CLEAR) Urine Protein 30 mg/dL (NEG-TRACE) Urine Occult Blood MOD (NEG) Urine Leukocyte Esterase MOD (NEG) Urine RBC 9 /hpf (0-3) Urine WBC 10 /hpf (0-5) Urine Bacteria OCC /hpf (NONE) Urine Mucus FEW /lpf (OCC) Blood Urea Nitrogen 20 MG/DL (7-18) Anion Gap 3 MEQ/L (5-15) Laboratory Results Test 06/08/17 06:23 Cholesterol Level 143 MG/DL (120-200) HDL Cholesterol 57.3 MG/DL (40.0-60.0) Hemoglobin A1c 5.5 % (4.3-6.0) LDL Cholesterol 61 MG/DL (0-99) Triglycerides Level 123 MG/DL (42-150) Summary of Procedures None done Imaging Last Impressions Renal Ultrasound 06/08/17 0000 Signed Impressions: Service Date/Time: Thursday, June 08, 2017 21:41 - CONCLUSION: Ultrasound appearance of the kidneys and urinary bladder within normal limits. Mick Dahl MD Pending results at discharge: No Medications # of Antipsychotic meds at D/C: 1 Approp Antipsych med options 1 - Minimum of three failed multiple trials of monotherapy. 2 - Documented plan to taper to monotherapy due to previous use of multiple meds OR cross-taper in progress at D/C. 3 - Documentation of augmentation of Clozapine. 4 - Justification other than those listed in allowable values 1-3, document here : Discharge Discharge Date: Jun 10, 2017 Discharge Diagnosis: (1) Adjustment disorder with depressed mood Diagnosis: Principal ICD Code: F43.21 - Adjustment disorder with depressed mood Pt Condition on Discharge: Stable Discharge Disposition: Discharge Home Discharge Instructions Diet Instructions: As Tolerated, No Restrictions Activities you can perform: Regular-No Restrictions Scheduled Appointment: Maciej Bernard Appointment Date: Jun 12, 2017 Appointment Time: 7:30am Discharge Time > 30 minutes Mental Status Examination Appearance: Appropriate, Other (Green tinted hair) Consciousness: Alert Orientation: x4 Motor Activity: Normal gait Speech: Unremarkable Language: Adequate Fund of Knowledge: Adequate Attention and Concentration: Adequate Memory: Unremarkable Mood: Sad Affect: Sad, Flat Thought Process & Associations: Intact Thought Content: Appropriate Hallucination Type: None Delusion Type: None, Bizarre Suicidal Ideation: No Suicidal Plan: No Suicidal Intention: No Homicidal Ideation: No Homicidal Plan: No Homicidal Intention: No Insight: Poor Judgment: Poor Discharge/Advance Care Plan Health Problems: (1) Adjustment disorder with depressed mood Goals to promote your health * To prevent worsening of your condition and complications * To maintain your health at the optimal level Directions to meet your goals Take your medications as prescribed Follow your dietary instruction Follow activity as directed Keep your appointments as scheduled Take your immunizations and boosters as scheduled If your symptoms worsen call your PCP, if no PCP go to Urgent Care Center or Emergency Room For 17/09 questions related to your inpatient stay or results of tests pending at discharge, please contact Dr. Mick Singh at Smoking is Dangerous to Your Health. Avoid second hand smoking Mick Singh MD Jun 10, 2017 14:45
== END 2017-06-10 17:35 | disposition home or self-care (01) | DRG 881 ==
LOC: NEPD 23:03 → NEDA 06-07 08:59 → H270 06-07 10:20 → H260 06-07 20:25
PROVIDERS: ADMIT Psychiatry & Neurology Psychiatry; ATTEND Psychiatry & Neurology Psychiatry
DX: F43.21 Adjustment disorder with depressed mood (principal); N17.9 Acute kidney failure, unspecified; R45.851 Suicidal ideations; N39.0 Urinary tract infection, site not specified; T50.992A Poisoning by other drugs, medicaments and biological substances, intentional self-harm, initial encounter; F41.9 Anxiety disorder, unspecified; F17.210 Nicotine dependence, cigarettes, uncomplicated; Z81.8 Family history of other mental and behavioral disorders; R68.2 Dry mouth, unspecified
CPT/HCPCS: 76775; 80048; 80053; 80061; 80069; 80307; 81001; 82570; 83036; 84300; 84443; 84703; 85025; 86038; 87086